=== PATIENT | female | born 1930 | race Caucasian/White ===

== ENCOUNTER 2016-08-07 14:36 | Inpatient (IN) | payer MEDICARE ==
[~2016-08-07] VITALS: Ht 154.9 cm; Wt 112.5 kg
--- NOTE | ~2016-08-07 | CON ---
PATIENT'S NAME: KIRSTEN CALDWELL [facility] AGE: 85 Y [address] ROOM: [place] [address] LOCATION: [facility] ADMIT DATE: 08/07/2016 Consultation DISCHARGE DATE: FAMILY PHYSICIAN: Rosita Kapoor MD ATTENDING PHYSICIAN: MISHA CARR DATE OF CONSULTATION: 08/09/2016 REFERRING PHYSICIAN: DERRICK UGARTE INFECTIOUS DISEASE CONSULTATION REASON FOR CONSULTATION: Cellulitis, right lower extremity. HISTORY: Ms. Caldwell is an 85-year-old female with a history of infection in her right lower extremity. She had a red swollen right leg. She was treated with antibiotics down in [place], [place] but did not improve apparently. It worsened when she went home on Keflex. She had some subjective chills and fevers, and thus was sent up to see Dr. Carr where he admitted her to the hospital. She has been placed on IV vancomycin, and ID is asked to see her. She is feeling some better. Notes that her leg is less swollen and less painful. She has not had fevers, chills, or sweats when she has been here. She does have a history of lots of venous stasis and congestion. She reports her legs are normally wrapped. She tries to keep them elevated as well. She has also had surgeries on her knees. ID is asked to see and assist with antibiotics. PAST MEDICAL HISTORY: Significant for hypertension, asthma, obesity, joint surgeries, rectal abscess surgery. FAMILY HISTORY: Mom had a brain tumor at 86. Father had congestive heart failure and prostate cancer at 82. A sister had ovarian cancer at age 62. A brother had bone cancer at 75. SOCIAL HISTORY: She lives with her nephew in [place], [place]. Does not currently smoke, drink, or use illicit drugs. MEDICATIONS: Noted. She is on vancomycin. ALLERGIES: PATIENT'S NAME: KIRSTEN CALDWELL [facility] AGE: 85 Y [address] ROOM: [place] [address] LOCATION: [facility] ADMIT DATE: 08/07/2016 Consultation DISCHARGE DATE: FAMILY PHYSICIAN: Rosita Kapoor MD ATTENDING PHYSICIAN: MISHA CARR NOTED. SHE LISTS PENICILLIN BUT WAS TAKING KEFLEX WITHOUT A PROBLEM. REVIEW OF SYSTEMS: All remaining review of systems otherwise negative with pertinent positives and negatives as stated in the HPI. PHYSICAL EXAMINATION: GENERAL: She is not in any acute distress. Awake, alert, oriented, sitting up in a chair. She does have her legs propped up. VITAL SIGNS: She has been afebrile since she has been here with a T-max of 98.3, blood pressure is 141/73, pulse 80, respirations 16. HEENT: NC/AT. EOMI. PERRLA. NECK: Supple. LUNGS: Decreased breath sounds bilaterally. HEART: Distant S1 and S2. ABDOMEN: Protuberant, soft, and nontender. EXTREMITIES: Reveal edema bilaterally. Her right leg is bigger than the left. There is erythema, and there is peeling of the skin on the left lower extremity. She does have a wound just proximal to her lateral malleolus, that is scabbed over. There is no drainage. There is no fluctuance. DATA: Blood cultures have no growth to date today. White count is 10, hemoglobin 12.9, platelet count is 285. Sodium 134, potassium 3.7, bicarb is 31, BUN 31, creatinine 1.1. ASSESSMENT AND PLAN: Cellulitis of right lower extremity. Likely, strep given the appearance. It is already improving, most likely due to elevation. We will add ceftriaxone for now. I suspect the reason she did not respond was because she had her legs down too much and the edema was too significant. The reason she has improved so rapidly here is the elevation of her legs since she has been here. I would probably not to give her any further vancomycin for now and just start her on ceftriaxone, keep her leg elevated, compression when able, and then home hopefully in a day or two. Likely either back on her Keflex or cefuroxime 500 mg p.o. b.i.d., and please call with questions. Did speak with Dr. Carr today. MD HOLLY MAHER/dimitrios PATIENT'S NAME: KIRSTEN CALDWELL [facility] AGE: 85 Y [address] ROOM: [address] [address] LOCATION: [facility] ADMIT DATE: 08/07/2016 Consultation DISCHARGE DATE: FAMILY PHYSICIAN: Rosita Kapoor MD ATTENDING PHYSICIAN: MISHA CARR /[id number] d: 08/09/162032 t: 09/06/16 1758, CONSULTATION REPORT
--- NOTE | ~2016-08-07 | ECHO ---
Transthoracic Echocardiography Report (TTE) Demographics Patient Name KIRSTEN HOUSE Date of Study 08/14/2016 Patient Number [id number] Visit Number [id number] Date of 1930 Room Number G3215 Accession Number [id number] Gender Female Age 85 year(s) Referring Antwon Spain MD Customer Experience Professional aSlma Jaeger Physician Elidia Mcnamara RD MD Dayan Cronin Physician Interpreting Olivia Baltazar Inspector Quality Assurance Physician MD Supervising Ordering Physician Elidia Mcnamara MD, MD/MLP Nurse Stress Aspnet Developer Conclusions Contractility Score Summary Normal Left Ventricular contractility was noted. Summary The estimated left ventricular ejection fraction is 70% with normal WM.The left ventricle is normal in size .Mild concentric left ventricular hypertrophy. No significant valvular abnormalities. Procedure Type of Study TTE procedure:2D Echocardiogram. Procedure Date Date: 08/14/2016 Start: 07:00 AM Study Location: Inpatient Portable Technical Quality: Adequate visualization Indications:Bilateral lower extremity edema and Congestive heart failure. Appropriate Use Criteria: 9 Patient Status: Routine HR: 81 bpm BP: 123/51 mmHg M-Mode/2D Measurements LV Diastolic Dimension: 4.11 cm LV Systolic Dimension: 2.43 cm LV Septum Diastolic: 1.11 cm LV PW Diastolic: 1.12 cm AO Root Dimension: 2.7 cm Cardiac Output: 8.67 l/min AV Cusp Separation: 2.1 cm RV Diastolic Dimension: 3 cm LA volume: 51 ml LVOT: 2 cm RV Base: 3.45 cm LVOT VTI: 34.1 cm RV Mid: 2.79 cm LV Stroke volume: 107.07 ml TAPSE: 2.56 cm TDI-S': 14.8 cm/s Doppler Measurements AV Peak Velocity: 1.88 m/s MV Peak E-Wave: 0.85 m/s AV Peak Gradient: 14.14 mmHg MV Peak A-Wave: 1.41 m/s AV Mean Gradient: 9 mmHg MV E/A Ratio: 0.6 LVOT Peak Velocity: 1.65 m/s MV Deceleration Time: 218 msec TR Velocity:1.67 m/s PV Peak Velocity: 1.19 m/s TR Gradient:11.16 mmHg PV Peak Gradient: 5.66 mmHg Estimated RAP:8 mmHg Estimated PASP: 19.16 mmHg Estimated RVSP: 19 mmHg A' Septal Velocity: 0.08 m/s E' Septal Velocity: 0.05 m/s A' Lateral Velocity: 0.15 m/s E' Lateral Velocity: 0.06 m/s Findings Left Ventricle The left ventricle is normal in size .Mild concentric left ventricular hypertrophy.Normal EF and WM. Right Ventricle Normal right ventricle structure and function. Left Atrium Normal left atrial size. Right Atrium Normal right atrial size. IVC measures 1.81 cm with partial inspiratory collapse. Mitral Valve Normal mitral valve structure and function. Trivial mitral regurgitation by color Doppler. Aortic Valve Normal aortic valve structure and function. Tricuspid Valve Normal tricuspid valve structure and function. Trivial tricuspid regurgitation by color Doppler. Pulmonic Valve The pulmonic valve is not well visualized. Pericardial Effusion No evidence of pericardial effusion. Miscellaneous Visualized portions of the aortic root and ascending aorta appear normal in size. Pleural Effusion No evidence of pleural effusion. Contractility Score LV regional wall motion:(0-Non visualized 1-Normal 2-Hypokinesis 3-Akinesis 4-Dyskinesis 5-Aneurysm) Signature dtt: Delaney Baker dtd: 08/14/16 0700 Physician Self Edit
--- NOTE | ~2016-08-07 | CON ---
PATIENT'S NAME: KIRSTEN HOUSE [facility] AGE: 85 Y [address] ROOM: [place] [address] [place] [facility] [place] ADMIT DATE: 08/07/2016 Consultation DISCHARGE DATE: FAMILY PHYSICIAN: Rosita Kapoor MD ATTENDING PHYSICIAN: MISHA CROWLEY REFERRING PHYSICIAN: DERRICK UGARTE CHIEF COMPLAINT: Right lower extremity cellulitis. HISTORY OF PRESENT ILLNESS: The patient is an 85-year-old female with past medical history of obesity, hypertension, possible congestive heart failure, and asthma, who presented here from Dr. Crowley's office with failed outpatient treatment of right lower extremity cellulitis. The patient was recently admitted at [facility], and was treated for right lower extremity cellulitis and was discharged with Keflex. The patient was discharged on August 03, 2016. The patient reports that her cellulitis did not improve, and has worsened ever since. She also reports of a few days' history of productive cough, and reports that she was treated with Z-Martínez for her productive cough. She reports of subjective chills and fever. She also reports of productive cough with yellow sputum. She denied chest pain, shortness of breath, abdominal pain, nausea, vomiting, diarrhea, and dizziness. Of note, at Dr. Crowley's office, the patient had lower extremities Doppler which showed no signs of deep venous thrombosis. PAST MEDICAL HISTORY: 1. Hypertension. 2. Possible congestive heart failure. 3. Asthma. 4. Obesity. PAST SURGICAL HISTORY: 1. Rectal abscess removal. 2. Left knee scope. 3. Left eye cataract. 4. Left shoulder surgery. 5. Umbilical hernia repair. 6. Left total knee surgery. FAMILY HISTORY: Mother from brain tumor at age 86. Father from congestive heart failure and prostate at age 82. Sister from ovarian cancer at age 62. PATIENT'S NAME: KIRSTEN HOUSE [facility] AGE: 85 Y [address] ROOM: [place] [address] LOC[place]: [facility] [place] ADMIT DATE: 08/07/2016 Consultation DISCHARGE DATE: FAMILY PHYSICIAN: Rosita Kapoor MD ATTENDING PHYSICIAN: MISHA CROWLEY Brother from bone cancer at age 75. SOCIAL HISTORY: The patient lives with her nephew at [facility]. HOME MEDICATIONS: 1. Amiloride/hydrochlorothiazide one tablet a day. 2. Ascorbic acid 500 mg. 3. Aspirin 81 mg. 4. Bumetanide 0.5 mg. 5. Keflex 500 mg. 6. Conjugated estrogen 300 g cream. 7. Docusate sodium. 8. Montelukast. 9. Multivitamins. 10. Naproxen. REVIEW OF SYSTEMS: Ten-point systems was assessed, all were negative except above stated in history of present illness. PHYSICAL EXAMINATION: VITAL SIGNS: Afebrile. Vital signs were stable. GENERAL APPEARANCE: The patient is alert and awake, in no acute distress. HEENT: Moist oral mucosa. Extraocular muscles were intact. No jugular venous distention. NECK: Supple. CHEST: Mild expiratory wheezing. No rhonchi and no rales. CARDIOVASCULAR: Regular rate and rhythm. No murmurs, rubs, or gallops. ABDOMEN: Soft, nontender, and nondistended. Bowel sounds were present. EXTREMITIES: Right lower extremity showed erythema around the rubin and ankle. Erythema border was marked. There was a small ulcer noted with some granulation tissues. Distal pulses were present. NEUROLOGICAL: Alert and oriented x3. Motor and sensory were grossly intact. SKIN: Warm to touch. LABORATORY DATA: No data was available as of now. ASSESSMENT AND PLAN: The patient is an 85-year-old female with past medical history of hypertension, possible congestive heart failure, asthma, and obesity, who presented here from Dr. Crowley's office with failed cellulitis treatment. Medicine was consulted for medical management. PATIENT'S NAME: KIRSTEN HOUSE [facility] AGE: 85 Y [address] ROOM: [address] [place] [id number] [place] [facility] [place] DATE: 08/07/2016 Consultation DISCHARGE DATE: FAMILY PHYSICIAN: Rosita Kapoor MD ATTENDING PHYSICIAN: MISHA CROWLEY 1. Right lower extremity cellulitis. The patient has failed outpatient treatment with Keflex. Recommend starting the patient on vancomycin, finalizing the dose. We will acquire blood culture. Lower extremities Doppler, preliminary report was negative. Erythema border was marked. We will follow up clinically daily. We will require complete blood count. 2. Hypertension, stable. Continue medications. We will require renal function panel. 3. Possible congestive heart failure. The patient denies history of congestive heart failure, but reports of lower extremities edema. Currently, no lower extremities edema was noted. We will assess clinically. 4. Asthma. We will start DuoNeb and continue her montelukast. 5. Productive cough. The patient reports of recent history of productive cough. We will acquire chest x-ray to further investigate. 6. Morbid obesity, ongoing. Greater than 30 minutes was spent on plan and management. Discussed findings with the patient and Dr. Crowley. Appreciated for including us in the care of this patient. MD MARIN WETZEL/dimitrios /[id number] d: 08/08/16 0122 t: 08/08/16 1134, CONSULTATION REPORT
--- NOTE | ~2016-08-07 | DS ---
PATIENT'S NAME: KIRSTEN HOUSE [facility] AGE: 85 Y [address] ROOM: [address] [place], [place] [address] LOCATION: [facility] [place] ADMIT DATE: 08/07/2016 Discharge Summary DISCHARGE DATE: 08/15/2016 FAMILY PHYSICIAN: Rosita Kapoor MD ATTENDING PHYSICIAN: Emily Brenner DISCHARGE DIAGNOSES: 1. Right lower extremity cellulitis. 2. Essential hypertension. 3. Congestion. 4. Asthma. 5. Morbid obesity. 6. Restless legs syndrome. HOSPITAL COURSE: Please refer to admitting history and physical as dictated by Dr. Cope. The patient was admitted to [facility] for right lower extremity cellulitis. She was seen by Dr. Crowley. She was placed on vancomycin. It was encouraged that she keep her legs elevated when sitting. She was started on Lovenox for DVT prophylaxis. She was also started on Florastor for GI prophylaxis. Due to her lower extremity edema, she was continued on her home Bumex. On 08/09/2016, her vancomycin was stopped, and she was placed on cefepime 1 g IV every 8 hours. She was also given a dose of albumin to help mobilize her lower extremity edema for diuresis. On 08/10/2016, her cefepime was stopped, and she was changed to doxycycline 100 mg IV every 12 hours. Her right lower extremity cellulitis did then become worse on the doxycycline, therefore on 08/11/2016, she was placed back on the vancomycin IV. She was started on Mucinex for her chest congestion as well as DuoNeb. Vancomycin was continued, and her legs did continue to improve. On 08/14/2016, the vancomycin and doxycycline were discontinued. She was placed on clindamycin 300 mg p.o. 3 times a day. Echocardiogram was ordered also for her chest congestion. Echocardiogram at the time of this dictation is currently pending. She was given a short course of p.o. steroids to help with her expiratory wheeze. On 08/15/2016, her right lower extremity cellulitis did improve. It was much less red, the edema had improved. She was during her hospitalizations started on Requip for restless legs, which did seem to help her sleep better. She also did have intermittent Tylenol as needed. On the day of discharge, she was having no leg pain. She was up and ambulatory with a walker. She was maintaining her sats at 93% on room air. Her blood pressures were stable. Afebrile. It was felt as though she could be discharged to home on clindamycin p.o. until 08/22/2016. She should follow up with Dr. Kapoor in 3 days, Saloni Cha APRN in 1 week, and Dr. Keo monzon. LABORATORY DATA: Sodium remained stable; potassium 3.2 to 4.1; calcium 8.8; BUN upon admit 31, prior to discharge 44; creatinine 1.1 upon admit, it did trend down as low as 0.9, prior to discharge 1.2. GFR ranged from 43 to 59. PATIENT'S NAME: KIRSTEN HOUSE [facility] AGE: 85 Y [address] ROOM: [place] [address] LOCATION: [facility] [place] ADMIT DATE: 08/07/2016 Discharge Summary DISCHARGE DATE: 08/15/2016 FAMILY PHYSICIAN: Rosita Kapoor MD ATTENDING PHYSICIAN: Emily Brenner Mag 1.8. ProBNP 311. Hemoglobin A1c 7.3. WBCs 10.0 upon admit, they did go as high as 13.1, at which time, she had been on oral steroids, prior to discharge 9.5; hemoglobin remained stable 12.5 to 12.9, hematocrit 39.0 to 40.1; platelets 292. Culture results of the right lower extremity from [facility] did show moderate growth of Enterobacter cloacae complex and light growth of Staphylococcus aureus. Blood cultures revealed no growth at 5 days. RADIOLOGY REPORTS: Chest x-ray showed stable chest, no evidence of acute disease. Echocardiogram is pending. DISCHARGE INSTRUCTIONS: 1. The patient will be discharged to home. 2. Diet: As tolerated. 3. Activity: As tolerated. 4. Follow up with Saloni Cha APRN in 1 week. Follow up with Dr. Kapoor in 3 days. Follow up with Dr. Keo armijo 5. Elevate legs when sitting. Yoghurt daily at home. DISCHARGE MEDICATIONS: 1. Amiloride and HCTZ 5/50 0.5 tab p.o. twice a day. 2. Ascorbic acid 500 mg p.o. daily. 3. Aspirin 81 mg p.o. daily. 4. Bumetanide 0.5 to 1 mg p.o. every night at bedtime p.r.n. fluid retention. 5. Cookie 180 mg p.o. daily. 6. Cleocin 300 mg p.o. 3 times a day, stop date 08/22/2016. 7. Colace 200 mg p.o. every night at bedtime, hold if loose stools. 8. Singulair 10 mg p.o. q.h.s. 9. Multivitamin 1 tablet p.o. daily. 10. Requip 0.25 mg p.o. daily. 11. Tylenol 650 mg p.o. every 6 hours as needed for pain. 12. DuoNeb 1 inhalation as needed p.r.n. wheezing. 13. Mucinex ER one tab p.o. twice daily p.r.n. congestion. 14. Premarin vaginal cream one application 2 times a week p.r.n. dryness. 15. Align probiotic or generic equivalent [id number] take as directed on the box. Thank you for allowing us to participate in the care of this patient as she has been hospitalized at [facility]. LUIS FERNANDO ORDAZ APRN FOR EMILY BRENNER MD PATIENT'S NAME: KIRSTEN HOUSE [facility] AGE: 85 Y [address] ROOM: [place] [address] LOCATION: [facility] [place] ADMIT DATE: 08/07/2016 Discharge Summary DISCHARGE DATE: 08/15/2016 FAMILY PHYSICIAN: Rosita Kapoor MD ATTENDING PHYSICIAN: Emily Brenner/dimitrios /[id number] CC: MD Rosita Chow MD d: 08/16/167 t: 04/17/17 1647, DISCHARGE SUMMARY
[2016-08-07] MEDS ORDERED: THERAGRAN-M1 TAB PO (15:35)
[2016-08-07] MEDS ORDERED: ASPIRIN LO-DOSE81 MG PO (15:35)
[2016-08-07] MEDS ORDERED: BIOFLEX TABLET1 EACH PO (15:36)
[2016-08-07] MEDS ORDERED: COLACE100 MG PO (15:36)
[2016-08-07] MEDS ORDERED: ASCORBIC ACID500 MG PO (15:37)
[2016-08-07] MEDS ORDERED: AMILORIDE HCL-1 EACH PO (15:38)
[2016-08-07] MEDS ORDERED: KEFLEX500 MG PO (15:38)
[2016-08-07] MEDS ORDERED: ALEVE220 MG PO (15:39)
[2016-08-07] MEDS ORDERED: BUMETANIDE0.5 MG PO (15:40)
[2016-08-07] MEDS ORDERED: SINGULAIR10 MG PO (15:41)
[2016-08-07] MEDS ORDERED: MUCINEX D ER T1 EACH PO (15:42)
[2016-08-07] MEDS ORDERED: ALLEGRA180 MG PO (15:42)
[2016-08-07] MEDS ORDERED: PREMARIN VAG30 GM VAG (15:43)
--- NOTE | 2016-08-07 16:10 | NUR ---
86 Y/O FEMALE ADMITTED FOR LYMPHANGITIS. PT IS A&OX3. CELLULITIS ON RT LOWER LEG WITH AN OPEN WOUND. RT LOWER LEG IS NOTED TO BE TERRIBLY RED & ADEMATOUS. PT HAS MANY ALLERGIES - PENICILLINS, SULFA, NUCYNTA, CODEINE, MORPHINE, OXYCODONE. ERYTHROMYCIN FOR ENTIRE MEDICAL & SURGICAL HISTORY SEE ADMISSION ASSESMENT PART ONE - PT HAS HX OF HYPERTENSION, ASTHMA, BRONCHITIS, DIFF WALKING-USES WALKER, IBS, CONST & DIARRHEA,CERVIACL CANCER, DIVERTICULITIS, FREQ UTI & OCC INCONTINANCE, NOCTURIA, BOWEL RESECTION...HX CDIFF & SHINGLES FORMER SMOKER X20 YRS & QUIT IN 1969 REPORT GIVEN TO PT PRIMARY CARE NURSE MAREK GALLEGOS
[2016-08-07 17:41] LABS: BASOPHIL % 0.4 %; EOSINOPHIL # 0.5 K/uL (0.0-0.5); EOSINOPHIL % 4.7 %; HEMATOCRIT 40.1 % (30.0-46.0); HEMOGLOBIN 12.9 g/dL (10.0-15.0); IMMATURE GRANULOCYTE # 0.1 K/uL (0.0-0.3); IMMATURE GRANULOCYTE % 1.3 %; LYMPHOCYTE # 2.1 K/uL (0.8-4.0); LYMPHOCYTE % 21.2 %; MCH 28.6 pg (27.0-34.0); MCHC 32.2 gm/dL (32.0-36.5); MCV 88.9 fl (83.0-98.0); MONOCYTE # 1.6 K/uL (0.0-1.0); MONOCYTE % 15.4 %; MPV 9.6 fl (9.4-12.4); NEUTROPHIL # (ANC) 5.7 K/uL (1.8-7.8); NRBC % 0 /100WBC (0-0.00); PLATELET COUNT 285 K/uL (150-450); RDW-CV 14.8 % (11.9-14.6)
[2016-08-07 17:42] LABS: RBC 4.51 M/uL (3.00-5.00)
[2016-08-07 17:56] LABS: ANION GAP 11.7 (10.0-19.0); CALCIUM 8.9 mg/dL (8.5-10.5); CREATININE 1.1 mg/dL (0.5-1.1); PHOSPHORUS 3.3 mg/dL (2.5-4.9); POTASSIUM 3.7 mMol/L (3.7-5.1)
--- NOTE | 2016-08-08 04:42 | NUR ---
ADMITTED 4/3 RLE CELLULITIS AND WOUND, 4+PITTING EDEMA TO BLE AND REDNESS MARKED ON LEG, RIGHT LATERAL CALF WITH SMALL WOUND [id number] CLOSED AND RIGHT MEDIAL WITH SMALL SCABBED AREA BOTH MARKETING SYSTEMS MANAGER. TYLENOL LD@0200 FOR RESTLESS LEGS WITH GOOD RESULTS. STRESS INC OF BLADDER AND WEARS PULLUPS WITH PADS. GOOD PO INTAKE/OUTPUT THIS SHIFT AND CAN AMBULATE WITH SBA W/FWW/GAIT BELT TO THE BATHROOM. RIGHT FA PIV SALINE LOCKED AND PATIENT IS ON VANCO AND WILL HAVE A TROUGH DRAWN PER [facility] REQUIREMENTS THIS MORNING. C/S IN FOR ID MD, PRODUCTIVE COUGH BUT LS ARE CLEAR BILATERALLY, BLOOD CX'S DRAWN AND NO RESULTS AT THIS TIME. WILL NEED A WOCN CONSULT FOR WOUND CARES.
[2016-08-08 08:18] LABS: CREATININE 1.1 mg/dL (0.5-1.1)
--- NOTE | 2016-08-08 14:05 | NUR ---
UNABLR TO BK CAPONE, 2X Freddy REYNOSO RN X1 Naima JOSHI RN
--- NOTE | 2016-08-08 15:28 | NUR ---
Significant Event: Pt denies pain. Bilaterial lower legs reddened. Left lower leg has small scabbed area. Elevate legs whenever possible. IV infiltrated, new IV to left arm. Order for midline but PICC nurses unable to get one in, may try again tomorrow. Up with standby assist. Inc of urine. Follow up:
--- NOTE | 2016-08-09 08:02 | NUR ---
Significant Event: AAOX4. REGULAR DIET. PIV TO LFA SL. PT ON VANCO; IS TO RECEIVE MIDLINE TODAY FOR ATB THERAPY. PT AMBULATES FAIR-WELL WITH FWW. INCONTINENT TO BLADDER. PRN BREATHING TREATMENT DONE FOR EXPIRATORY/INSPIRATORY WHEEZING @ 2121. DENIED PAIN THROUGHOUT SHIFT. EDEMA TO BLE, ELEVATED THROUGHOUT THE NIGHT. Follow up: MIDLINE PLACEMENT,
--- NOTE | 2016-08-09 19:47 | NUR ---
Significant Event: PT CONTINUES TO HAVE REDESS AND SWELLING TO RIGHT LOWER LEG. THE REDNESS IS RECEDING FROM THE MARKINGS THAT WERE MADE ON ADMISSION. LEG IS VERY SENSITIVE TO TOUCH. SHE HAS A SCAB/SORE TO INNER AND OUTER ASPECT OF ANKLES. PT WAS GIVEN TYLENOL X 1. SHE WAS ABLE TO AMBULATE TO THE BATHROOM WITH 1 SBA. SHE DOES HAVE PROBLEMS WITH INCONTINENCE AT TIMES. PT WEARS AND CHRISTI PAD AND DEPEND BRIEF. SHE WAS GIVEN ROCEPHIN IV THEN MED WAS DC'D AND CHANGED TO OTHER ANTIBIOTIC. SHE IS EATING AND DRINKING WELL.
--- NOTE | 2016-08-10 04:26 | NUR ---
Significant Event: Sleeping for long periods tonight. Afebrile, all other VSS. Tylenol given x1 at 2054 for complaints of pain with relief noted upon reassessment. PIV to L) posterior forearm patent, saline locked. 3-4+ edema to bilateral lower legs, patient encouraged to keep them elevated. Ambulates with 1 min assist, walker and gait belt. Drinking and voiding adequate amounts. Cooperative with cares. Follow up:
[2016-08-10 05:57] LABS: ALBUMIN 2.6 gm/dL (3.5-5.0); ANION GAP 9.7 (10.0-19.0); CALCIUM 8.1 mg/dL (8.5-10.5); CREATININE 0.9 mg/dL (0.5-1.1); MAGNESIUM 1.7 mg/dL (1.3-2.6); PHOSPHORUS 3.2 mg/dL (2.5-4.9); POTASSIUM 3.7 mMol/L (3.7-5.1)
--- NOTE | 2016-08-10 15:30 | NUR ---
SPOKE TO PATIENT REGARDING CM AND OUR ROLE. PATIENT LIVES ALONE IN OWN HOME, SHE HAS A NEPHEW THAT LIVES IN HER DRIVEWAY IN A [place] AND HE HELPS HER PNR. SHE ALSO HAS OTHER FAMILY AND FRIENDS THAT LIVE NEAR HER WHO HELP HER. SHE LIVES IN A HOME THAT IS HANDICAP ACCESSABLE AND SHE HAS A FRONT WHEELED WALKER. SHE IS HOPING TO BE DISCHARGE HOME TOMORROW. SHE DOES NOT ANTICPATE ANY DISCHARGE NEEDS A THIS TIME.
[2016-08-10 17:19] LABS: CALCIUM 8.6 mg/dL (8.5-10.5); CREATININE 1.2 mg/dL (0.5-1.1); POTASSIUM 3.2 mMol/L (3.7-5.1)
[2016-08-10 17:20] LABS: ANION GAP 9.2 (10.0-19.0)
[2016-08-10 17:21] LABS: MAGNESIUM 1.6 mg/dL (1.3-2.6)
--- NOTE | 2016-08-11 04:49 | NUR ---
Significant Event: Sleeping well tonight. Afebrile, all other VSS. Tylenol given x2 last at 0314 for complaints of pain. PIV to L) posterior forearm patent and saline locked. Continues to have 3-4+ edema to bilateral lower legs. Patient encouraged to keep legs elevated. Ambulates to bathrooom with 1 assist and walker. Drinking well and voiding adequate amounts. Has 1 PRN RT treatment this shift at 1916 for wheezing. Cooperative with cares. Follow up:
[2016-08-11 05:22] LABS: ALBUMIN 3.5 gm/dL (3.5-5.0); ANION GAP 11.4 (10.0-19.0); CALCIUM 8.2 mg/dL (8.5-10.5); CREATININE 1.2 mg/dL (0.5-1.1); MAGNESIUM 1.5 mg/dL (1.3-2.6); PHOSPHORUS 3.3 mg/dL (2.5-4.9); POTASSIUM 3.4 mMol/L (3.7-5.1)
--- NOTE | 2016-08-11 13:40 | NUR ---
A - PT SCREENED D/T LOS. 3-4+ EDEMA BLE. LABS: K+ 3.4, GLU 132, BUN/CR 32/1.2. MEDS: VIBRAMYCIN, BUMEX, FLORASTOR, HYDRODIRUIL. DIET: 2-3 GM NA. INTAKE: 75-100%. HT 61" WT: 250# BMI: 47.2. EST NEEDS: 7295-3900 KCAL (11-14 KCAL/KCAL), 72-96 G PRO (1.5-2 G/KG IBW), 2280 ML FLUID (20 ML/KG) D - NO NUTRITION RELATED DIAGNOSIS IDENTIFIED AT THIS TIME. I - GOAL FOR INTAKE TO REMAIN 75-100% FOR DURATION OF STAY. M/E - WILL ASSIST NEEDED.
--- NOTE | 2016-08-11 19:00 | NUR ---
Significant Event: PATIENT ALERT AND ORIENTED X3. R) LOWER LEG RED, WITH HEALING WOUNDS. LOWER LEGS WITH 3-4+ EDEMA, ELEVATED AT ALL TIMES. REFUSED PAIN MED'S WHEN OFFERED. HAD REPIRATORY TREATMENTS X2 THIS SHIFT. COUGHING UP THICK YELLOW IN COLOR SPUTUM. RECEIVED SUDAFED/HUMIBID AT 1146 FOR CONGESTION. TO HAVE CXR IN AM. INITAL DOSE OF VANCO IV GIVEN AT 1536, ALBUMIN IV STARTED AT 1800, AND BUMEX IV TO FOLLOW ALBUMIN. TO HAVE ECHO 2D. UP TO CHAIR AND AMBULATES TO BATHROOM WITH 1 ASSIST, USE OF WALKER/GAIT BELT. Follow up:
--- NOTE | 2016-08-12 03:59 | NUR ---
BLE LYMPHATIC INFECTION, RIGHT LATERAL CALF WITH SMALL WOUND APPROX 1X1CM HEALING, RLE WITH PEALING SKIN AND VERY DRY. LEFT HAND PIV SALINE LOCKED. PATIENT WAS SUPPOSE TO GO HOME TODAY BUT DC WAS CANCELLED AND NEW IV ANTIBIOTICS STARTED FOR THE INFECTION. SCHEDULED FOR CXR THIS AM, 2D ECHO TODAY, DAILY AM WT WAS 111.7KG, VS WNL, SOB WITH EXTERION, NEB TXS PRN, SATS WNL, PAIN CONTROLLED WITH TYLENOL LD@2330 AND PATIENT WILL ONLY TAKE 1 AT A TIME "THEY SNOW ME" NEXT VANCO TROUGH SCHEDULED 08/14 @1500. GOOD PO INTAKE/OUTPUT AND IS INCONT OF URINE AND WEARS PULLS UPS WITH PADS IN THEM. UP WITH SBA/FWW/GAIT BELT TO THE BATHROOM. 4/7 LBM.
[2016-08-12 05:48] LABS: ALBUMIN 3.9 gm/dL (3.5-5.0); ANION GAP 12.1 (10.0-19.0); CALCIUM 8.8 mg/dL (8.5-10.5); MAGNESIUM 1.8 mg/dL (1.3-2.6); PHOSPHORUS 3.1 mg/dL (2.5-4.9); POTASSIUM 4.1 mMol/L (3.7-5.1)
--- NOTE | 2016-08-12 16:37 | NUR ---
Significant Event:IV left wrist leaking, 22G started in right hand, IV atb infused well, patient had one formed BM then 2 loose BM's, right leg redness improving since admit, incontinent of urine when returned from xray in am, then 2 voids, VSS Follow up:ECHO needs completed, home Sunday?
--- NOTE | 2016-08-13 04:53 | NUR ---
Significant Event:PT AAOX3.CAN BE SHORT WITH STAFF AT TIMES HOWEVER PLEASNT MOST OF THE TIME. WALKS IN HDEZ 1 TIMES. RIGHT LOWER LEG CONTINUES TO BE SWOLLEN AND RED. AFEBRILE DURING SHIFT. TAKES MEDICAITON WHOLE. IV TO RIGHT HAND. INCONT OF BLADDER. PRN TYLENOL GIVEN LAST AT 0330. STATES PAIN COMES AND GOES TO BILATERAL LEGS. VSS. USES CALL LIGHT APPROP. Follow up:
[2016-08-13 06:03] LABS: BASOPHIL # 0.1 K/uL (0.0-0.2); BASOPHIL % 0.6 %; EOSINOPHIL # 0.7 K/uL (0.0-0.5); EOSINOPHIL % 5.3 %; HEMATOCRIT 39.8 % (30.0-46.0); HEMOGLOBIN 12.7 g/dL (10.0-15.0); IMMATURE GRANULOCYTE # 0.1 K/uL (0.0-0.3); IMMATURE GRANULOCYTE % 0.6 %; LYMPHOCYTE # 2.4 K/uL (0.8-4.0); LYMPHOCYTE % 17.9 %; MCH 28.8 pg (27.0-34.0); MCHC 31.9 gm/dL (32.0-36.5); MCV 90.2 fl (83.0-98.0); MONOCYTE # 1.5 K/uL (0.0-1.0); MONOCYTE % 11.4 %; MPV 9.6 fl (9.4-12.4); NEUTROPHIL # (ANC) 8.4 K/uL (1.8-7.8); NEUTROPHIL % 64.2 %; NRBC % 0 /100WBC (0-0.00); PLATELET COUNT 284 K/uL (150-450); RBC 4.41 M/uL (3.00-5.00); RDW-CV 14.6 % (11.9-14.6); WBC 13.1 K/uL (4.0-11.0)
[2016-08-13 06:16] LABS: ANION GAP 14.8 (10.0-19.0); CALCIUM 8.9 mg/dL (8.5-10.5); CREATININE 0.9 mg/dL (0.5-1.1)
[2016-08-13 06:17] LABS: POTASSIUM 3.8 mMol/L (3.7-5.1)
--- NOTE | 2016-08-13 17:42 | NUR ---
Significant Event: tells nurses/Dr she wants to do more for herself and expressing frustration that nurses won't let her get up and move by herself then she gets upset with staff stating "we aren't helping her stand up and she will hurt her arms". Explained we want to stand by her to protect her from falls. Walked in the halls twice with standby assist. IV to right hand flushes with difficulty at times. Right leg remains reddened and swollen. Showered in am, needed staff to wash her hair and assist with drying. Incontinent of urine, uses call light often. Follow up:
--- NOTE | 2016-08-14 04:43 | NUR ---
SIGNIFICANT EVENT: Patient alert & oriented. Up in chair at beginning of shift. BP 123 to 149 over 51 to 66. RR 20 to 22. 90 to 92% on RA. Afebrile. Pulse 87 both assessments. 650 mg Tylenol x1 at 2254. R) lower extremity swollen and red but pt and family indicate it is greatly improved from admission date. 1PA walker and gaitbelt to ambulate. Walked in blankenship x1. Low sodium diet. May use Bedside commode after HS. R) hand IV dc'd d/t leaking, new one started in L) hand. Intermittent IV antibiotics. Pleasant and cooperative with cares.
[2016-08-14 05:28] LABS: BASOPHIL % 0.4 %; EOSINOPHIL % 0.2 %; HEMOGLOBIN 12.5 g/dL (10.0-15.0); IMMATURE GRANULOCYTE # 0.1 K/uL (0.0-0.3); IMMATURE GRANULOCYTE % 0.7 %; LYMPHOCYTE # 0.9 K/uL (0.8-4.0); LYMPHOCYTE % 9.9 %; MCH 28.6 pg (27.0-34.0); MCHC 32.1 gm/dL (32.0-36.5); MCV 89.2 fl (83.0-98.0); MONOCYTE # 0.2 K/uL (0.0-1.0); MONOCYTE % 2.2 %; MPV 9.4 fl (9.4-12.4); NEUTROPHIL # (ANC) 8.2 K/uL (1.8-7.8); NEUTROPHIL % 86.6 %; NRBC % 0 /100WBC (0-0.00); PLATELET COUNT 292 K/uL (150-450); RBC 4.37 M/uL (3.00-5.00); RDW-CV 14.5 % (11.9-14.6); WBC 9.5 K/uL (4.0-11.0)
[2016-08-14 05:42] LABS: ANION GAP 13.1 (10.0-19.0); CALCIUM 8.8 mg/dL (8.5-10.5); CREATININE 1.1 mg/dL (0.5-1.1); POTASSIUM 4.1 mMol/L (3.7-5.1)
--- NOTE | 2016-08-14 15:38 | NUR ---
Significant Event: Ambulates with SBA and walker. R) lower leg red and swollen, patient staes it is getting better. IV to L) hand saline locked. IV antibiotics stopped, Clindamycin PO to start tonight. Incont large amounts urine, Wears pull-ups with an extra pad. Denies pain. Remains on a low sodium diet. Follow up:
--- NOTE | 2016-08-15 04:28 | NUR ---
Significant Event: Ambulates in and out of the room with gait belt and walker. VSS on room air, Tylenol last given at 2247 for lower leg discomfort. Patient is pleasant and very talkative.
[2016-08-15 05:59] LABS: ANION GAP 11.7 (10.0-19.0); CALCIUM 8.8 mg/dL (8.5-10.5); CREATININE 1.2 mg/dL (0.5-1.1); POTASSIUM 3.7 mMol/L (3.7-5.1)
[2016-08-15] MEDS ORDERED: CLEOCIN HCL300 MG PO (15:06)
[2016-08-15] MEDS ORDERED: REQUIP0.5 MG PO (15:07)
[2016-08-15] MEDS ORDERED: TYLENOL325 MG PO (15:08)
[2016-08-15] MEDS ORDERED: DUONEB INH (15:10)
[2016-08-15] MEDS ORDERED: ALIGN4 MG (15:11)
--- NOTE | 2016-08-15 16:09 | NUR ---
D: Orders received for the patient to be discharged to home today. I: Dismissal instructions were prepared and reviewed with the patient virtually. The following information was discussed including [employer] teaching sheets provided: Discharge instructions for cellulitis, Clindamycin, Requip, Tyelnol, Ipratropium [place]/Albuterol Sulfate inhalation, Align or equivilent, and Preventing DVT. Reviewed follow up appointments with Saloni Cha on 08/22/16 at 2pm and with her primary doctor Dr. Kapoor on 08/18/16 at 3:40 pm. Also reviewed new prescriptions and that the patient and her family will need to take the prescriptions to the pharmacy to get them filled after discharge. Reinforced new medications and home medications and why she is taking them. R: The patient verbalized understanding of the dismissal education at the time of teaching with no further questions at this time. The patient will need further reinforcement of the discharge instruction at bedside. The primary nurse was notified and either the primary nurse Hiliary or the virtual nurse will review them with family when they get here. P: The above information was shared with the primary nurse and the charge nurse that the dismissal education was completed. The patient is ready for discharge to the front door via wheel chair by nursing staff when her family gets here.
--- NOTE | 2016-08-15 18:03 | NUR ---
Charting and assessments reviewed and agreed upon for Geremias Gould, student nurse for shift 08/14/16 [id number]. Josue Stallworth, RN, CPN
== END 2016-08-15 17:52 | disposition disaster alternative care site (69) | DRG 603 ==
LOC: GMSU 14:36
PROVIDERS: Internal Medicine; Nurse Practitioner Family; ADMIT Surgery Vascular Surgery
DX: L03.115 Cellulitis of right lower limb (principal); Z68.42 Body mass index [BMI] 45.0-49.9, adult; B96.89 Other specified bacterial agents as the cause of diseases classified elsewhere; I10 Essential (primary) hypertension; E66.01 Morbid (severe) obesity due to excess calories; H26.9 Unspecified cataract; J45.909 Unspecified asthma, uncomplicated; R60.0 Localized edema; Z87.19 Personal history of other diseases of the digestive system; G25.81 Restless legs syndrome; Z87.891 Personal history of nicotine dependence
CPT/HCPCS: C1751; J0692; J0696; J1650; J3370; J7050; J7512; P9047